=== PATIENT | female | born 1975 | race Caucasian/White ===

== ENCOUNTER 2016-05-19 11:25 | Emergency (ER) | payer OTHER ==
[~2016-05-19] VITALS: Ht 165.1 cm; Wt 70.5 kg
[~2016-05-19 11:25] MED LIST: EFF/375 PO; FISHOIL PO; Probiotic PO
[2016-05-19 11:28] VITALS: TEMP 36.7; Ht 165.1 cm; Wt 70.5 kg
[2016-05-19] MEDS ORDERED: BUPR-83 PO (11:41)
--- NOTE | 2016-05-19 12:07 | DIAGNOSTIC IMAGING REPORT ---
LEFT WRIST W/NAVICULAR MIN 3 VIEWS CLINICAL HISTORY: L wrist pain trauma. Pain. COMPARISON: None. DISCUSSION: Nondisplaced cortical fracture radial styloid. No evidence of dislocation. There is no evidence for soft tissue swelling. IMPRESSION: Nondisplaced cortical fracture radial styloid. Electronically signed by: Raymundo Ashraf M.D. 05/19/2016 12:05 PM Dictated Date/Time: 05/19/2016 12:05 PM
[2016-05-19 12:30] VITALS: BP 109/74; PULSE 64; O2SAT 100
--- NOTE | 2016-05-19 15:25 | EMERGENCY ROOM VISIT NOTE ---
History First contact with patient: 11:31 Chief Complaint: WRIST PAIN Stated Complaint: LEFT WRIST/HAND History of Present Illness The patient is a 41 year old female who presents to the Emergency Room with complaints of persistent left hand and wrist pain after injuring her hand/wrist while sledding Saturday evening, or 4 days ago. The patient reports that she was attempting to avoid a collision with another person, and thinks that she may have just flexed her wrist to forearm. She denies any paresthesias or numbness of the left hand and fingers. She denies any significant forearm or elbow pain. She has occasional paresthesias of the left hand and fingers. She rates her discomfort a 2 out of 10. The patient is [id number]. Review of Systems 10 system review was performed and was negative except for pertinent positives and negatives as indicated in history of present illness Past Medical/Surgical History Medical Problems: (1) No significant past medical history Surgical Problems: (1) No history of previous surgery Family History FH: diabetes mellitus Social History Smoking Status: Never Smoker Alcohol Use: occasionally Drug Use: none Marital Status: single Occupation Status: employed Current/Historical Medications Scheduled Bupropion (Wellbutrin), 100 MG PO BID Allergies Coded Allergies: No Known Allergies (Verified , 12/21/11) Physical Exam Vital Signs Date Time Temp Pulse Resp B/P Pulse Ox O2 Delivery O2 Flow Rate FiO2 05/19/16 12:30 64 16 109/74 100 05/19/16 11:28 36.7 68 18 127/81 100 Room Air Physical Exam CONSTITUTIONAL: Healthy and well nourished. Alert and oriented X 3 with positive affect. HEENT: Normocephalic, atraumatic. Pupils equal, round and reactive. NECK: Full active range of motion without discomfort. MUSCULOSKELETAL: Examination of the left upper extremity shows mild edema and ecchymosis in the palm, but has no tenderness to palpation of the phalanges or metacarpals. The patient has generalized tenderness about the wrist. Negative anatomic snuffbox tenderness. INTEGUMENTARY: No rash or other significant dermatologic conditions noted. NEUROLOGIC: Left hand and fingers are sensory intact. Medical Decision & Procedures ER Provider Diagnostic Interpretation: My interpretation of left wrist x-rays confirms a mildly displaced radial styloid fracture. Radiologist report is as follows: LEFT WRIST W/NAVICULAR MIN 3 VIEWS CLINICAL HISTORY: L wrist pain trauma. Pain. COMPARISON: None. DISCUSSION: Nondisplaced cortical fracture radial styloid. No evidence of dislocation. There is no evidence for soft tissue swelling. IMPRESSION: Nondisplaced cortical fracture radial styloid. ED Course Patient history and physical exam were performed. Nurse's notes were reviewed. The patient refused any analgesics. X-rays of the left wrist confirms a radial styloid fracture. An Ortho-Glass volar splint was applied. Neurovascular check after splint placement was normal. The patient was instructed to follow-up with [facility] for further reevaluation and management. Ice and elevation for swelling. Ibuprofen and Tylenol in alternating fashion as needed for additional pain relief. The patient was happy with plan of care, voiced understanding of all discharge instructions, and rated her pain a 3 out of 10 at the time of discharge. Medical Decision Impression Primary Impression: Displaced fracture of left radial styloid process, initial encounter for closed fracture Departure Information Referrals Mor Eddy (PCP) Patient Instructions [facility]
== END 2016-05-19 12:32 | disposition home or self-care (01) ==
LOC: C.EDB 11:27 → C.EDD 12:32
DX: S52.512A Displaced fracture of left radial styloid process, initial encounter for closed fracture (principal); X58.XXXA Exposure to other specified factors, initial encounter; Y93.23 Activity, snow (alpine) (downhill) skiing, snowboarding, sledding, tobogganing and snow tubing; Z79.899 Other long term (current) drug therapy

== ENCOUNTER → 2016-06-04 | Outpatient (CLI) | payer OTHER ==
[~2016-06-04] MED LIST changes: +BUPR-83 PO; -EFF/375 PO; -FISHOIL PO; -Probiotic PO
--- NOTE | 2016-06-04 10:32 | DIAGNOSTIC IMAGING REPORT ---
LEFT WRIST MIN 3 VIEWS ROUTINE CLINICAL HISTORY: Left wrist fracture. COMPARISON: Left wrist radiographs May 19, 2016. FINDINGS: A nondisplaced fracture of the lateral aspect of the distal left radius is unchanged in alignment since prior exam of May 19, 2016. There is no significant callus formation. Carpal bones are intact. A 5 mm sclerotic lesion within the distal left radius has a benign imaging appearance. IMPRESSION: No change in alignment of the nondisplaced distal left radial fracture. Electronically signed by: Sekou Abarca M.D. 06/04/2016 10:31 AM Dictated Date/Time: 06/04/2016 10:29 AM
== END | disposition home or self-care (01) ==
LOC: C.RDSM 14:45
PROVIDERS: ATTEND Family Medicine
DX: S62.102A Fracture of unspecified carpal bone, left wrist, initial encounter for closed fracture (principal); X58.XXXA Exposure to other specified factors, initial encounter

== ENCOUNTER → 2016-06-25 | Outpatient (CLI) | payer OTHER ==
--- NOTE | 2016-06-25 10:44 | DIAGNOSTIC IMAGING REPORT ---
LEFT WRIST 3 VIEWS CLINICAL HISTORY: Follow-up fracture. FINDINGS: 3 views of the left wrist are compared to study dated 06/04/2016. The skeletal structures are well mineralized. There is unchanged alignment of a healing radial styloid fracture. No new fracture is seen. A benign-appearing sclerotic focus in the distal radius is unchanged and likely represents a bone island. The joint spaces are preserved. The overlying soft tissues are within normal limits. IMPRESSION: Unchanged alignment of a healing radial styloid fracture as compared to 06/04/2016. Electronically signed by: Manjit Marcelino M.D. 06/25/2016 10:42 AM Dictated Date/Time: 06/25/2016 10:41 AM
== END | disposition home or self-care (01) ==
LOC: C.RDSM 10:49
PROVIDERS: ATTEND Family Medicine
DX: Z87.81 Personal history of (healed) traumatic fracture (principal)